=== PATIENT | female | born 1995 | race Caucasian/White ===

== ENCOUNTER 2018-07-09 13:41 | Inpatient (IN) | payer MEDICAID ==
[~2018-07-09] VITALS: Ht 175.3 cm; Wt 105.7 kg
[2018-07-09 14:51] VITALS: Ht 175.3 cm; Wt 105.7 kg
[2018-07-09] MEDS ORDERED: LIDOCAINE 1% (MPF) 30 ML INJ INJ PRN (15:00)
[2018-07-09] MEDS ORDERED: OXYTOCIN 30 UNITS/LR 500 ML IV SCH ×2 (15:00→17:30)
[2018-07-09] MEDS ORDERED: OXYTOCIN 30 UNITS/LR 500 ML IV PRN (15:00)
[2018-07-09] MEDS ORDERED: IBUPROFEN 600 MG TAB PO PRN (15:00)
[2018-07-09] MEDS ORDERED: BUTORPHANOL 2 MG INJ IV PRN ×2 (15:00→17:30)
[2018-07-09] MEDS ORDERED: METHYLERGONOVINE 0.2 MG INJ IM PRN (15:00)
[2018-07-09] MEDS ORDERED: MISOPROSTOL 200 MCG TAB PR PRN (15:00)
[2018-07-09] MEDS ORDERED: CARBOPROST 250 MCG INJ IM PRN (15:00)
[2018-07-09] MEDS: LACTATED RINGER'S 1,000 ML IV SCH ×2 (17:11→21:49)
[2018-07-09] MEDS ORDERED: BUTORPHANOL 1 MG INJ IV PRN (17:30)
[2018-07-09] MEDS ORDERED: ACETAMINOPHEN 325 MG TAB PO PRN (19:00)
[2018-07-10] MEDS: LACTATED RINGER'S 1,000 ML IV SCH ×3 (06:00→19:50)
[2018-07-10] MEDS ORDERED: LIDOCAINE 1% (MPF) 30 ML INJ INJ PRN (08:00)
[2018-07-10] MEDS: MISOPROSTOL 50 MCG CAPSULE PO SCH ×4 (11:10→23:00)
--- NOTE | 2018-07-10 12:07 | HP ---
Date/Time of Note Date/Time of Note DATE: 07/10/18 TIME: 12:03 OB - History Hx of Present Free Text/Dictation at 39+ weeks with continous headache unresolved with Tylenol. Care: Good Care Ultrasounds: Normal mid trimester US Obstetrical Complications: None Medical Complications: None Past Family/Social History * Past Medical, Surgical, Family and Obstetric Histories reviewed from chart. OB Admission Exam Physical Exam HEENT: WNL Heart: Rhythm Normal Lungs: Clear, Equal Abdomen: WNL Extremities: Normal Reflexes: Normal Cervical Dilatation: 1cm Effacement: 50% Station: -1 Membranes: Intact Heart Rate: 130's Accelerations: Accelerations Present Decelerations: No Decelerations Varibility: Moderate Contractions on Admission: 6-10 Minutes Apart Intensity: Moderate Last 72 hours Lab Results CBC & BMP 07/09/18 16:55 Liver Function Test 07/09/18 16:55 Alanine Aminotransferase (ALT/SGPT) 14 Albumin 3.4 Alkaline Phosphatase 172 H Aspartate Amino Transf (AST/SGOT) 25 Direct Bilirubin 0.00 Total Protein 6.8 OB Assessment/Plan Reason for admission: induction of labor (for contious headache.) Plan: Expectant Management, Induction Induction Method: per Pitocin Protocol BRITT FISCHER MD Jul 10, 2018 12:07
--- NOTE | 2018-07-10 19:58 | PREAC ---
Date/Time of Note Date/Time of Note DATE: 07/10/18 TIME: 19:56 Anesthesia Eval and Record Evaluation Time Pre-Procedure Interview DATE: 07/10/18 TIME: 19:56 Age 22 Sex female NPO: 8 hrs Preoperative diagnosis IUP Planned procedure L&D Epidural Past Medical History Past Medical History: Includes Cardio: HTN GI: Obesity Surgery & Anesthesia Issues No known issue Meds Anticoagulation: No Beta Horace within 24 hr: No Reason Beta Horace not given: Pt. not on B-Horace Current Medications Lactated Ringer's 1,000 ml @ 125 mls/hr Q8H IV Last administered on 07/10/18at 19:50; Admin Dose 125 MLS/HR; Start 07/09/18 at 14:42 Lidocaine (Xylocaine 1% (Mpf)) 30 ml ONCE PRN INJ .EPISIOTOMY; Start 07/09/18 at 15:00 Oxytocin/Lactated Ringer's 500 ml @ 500 mls/hr ONCE POST IV ; Start 07/09/18 at 15:00 Oxytocin/Lactated Ringer's 500 ml @ 125 mls/hr POST IV ; Start 07/09/18 at 15:00 Ibuprofen (Motrin) 600 mg ONCE PRN PO .PAIN 1-5; Start 07/09/18 at 15:00 Oxytocin/Lactated Ringer's 500 ml @ 0 mls/hr ONCE PRN IV .VAGINAL BLEEDING; Start 07/09/18 at 15:00 Methylergonovine Maleate (Methergine) 0.2 mg ONCE PRN IM .VAGINAL BLEEDING; Start 07/09/18 at 15:00 Carboprost Tromethamine (Hemabate) 250 mcg ONCE PRN IM .VAGINAL BLEEDING; Start 07/09/18 at 15:00 Misoprostol (Cytotec) 1,000 mcg ONCE PRN MS .VAGINAL BLEEDING; Start 07/09/18 at 15:00 Butorphanol Tartrate (Stadol) 1 mg Q2H PRN IV .PAIN; Start 07/09/18 at 17:30 Butorphanol Tartrate (Stadol) 2 mg Q2H PRN IV .PAIN Last administered on 07/10/18at 17:09; Admin Dose 2 MG; Start 07/09/18 at 17:30 Acetaminophen (Tylenol Tab) 650 mg Q4H PRN PO MILD PAIN(1-3)OR ELEVATED TEMP Last administered on 07/09/18at 18:56; Admin Dose 650 MG; Start 07/09/18 at 19:00 Lidocaine (Xylocaine 1% (Mpf)) 30 ml ONCE PRN INJ DELIVERY; Start 07/10/18 at 08:00 Misoprostol (Cytotec 50 Mcg Capsule) 50 mcg Q4H PO Last administered on 07/10/18at 15:27; Admin Dose 50 MCG; Start 07/10/18 at 11:00; Stop 07/11/18 at 07:01 Meds reviewed: Yes Allergies Coded Allergies: No Known Allergy (Unverified , 07/09/18) Allergies Reviewed: Yes Labs/Studies Labs Reviewed: Reviewed by anesthesiologist Result Diagram: 07/09/18165407/09/181654 test: Positive Studies: ECG Pre-procedure Exam Last vitals BP:112/65, P:78, Spo2:100%, T:98,8 Airway: Adequate mouth opening, Adequate thyromental dist Mallampati: Mallampati II Teeth: Normal Lung: Normal Heart: Normal ASA Physical Status ASA physical status: 2 Emergency: None Planned Anesthetic Neuraxial: Epidural Pre-operative Attestations Prior to commencing anesthesia and surgery, the patient was re-evaluated, there was verification of: *The patient's identity *The results of appropriate recent lab work and preoperative vital signs *The above evaluation not changing prior to induction *Anesthetic plan, risk benefits, alternative and complications discussed with patient/family; questions answered; patient/family understands, accepts and wishes to proceed. RENEA CARVALHO MD Jul 10, 2018 19:58
[2018-07-10] MEDS ORDERED: DIPHENHYDRAMINE 50 MG INJ IV PRN (20:00)
[2018-07-10] MEDS ORDERED: ONDANSETRON 4 MG INJ IV PRN ×2 (20:00→22:00)
[2018-07-10] MEDS ORDERED: NALOXONE (0.4 MG/ML) INJ IV PRN (20:00)
[2018-07-10] MEDS ORDERED: ROPIVACAINE 0.2% 100 ML ONE (20:03)
[2018-07-10] MEDS ORDERED: OXYTOCIN 30 UNITS/LR 500 ML IV SCH (22:00)
[2018-07-10] MEDS ORDERED: ACETAMINOPHEN 1000MG/100ML IV 100 ML IVPB ONE (22:00)
[2018-07-11] MEDS: MISOPROSTOL 50 MCG CAPSULE PO SCH (03:00)
[2018-07-11] MEDS: FENTAnyl 2MCG/ML-ROPIV 0.2% 100 ML BAG EPI SCH ×3 (03:19→14:19)
[2018-07-11] MEDS: LACTATED RINGER'S 1,000 ML IV SCH (03:28)
--- NOTE | 2018-07-11 13:16 | PAC ---
Date/Time of Note Date/Time of Note DATE: 07/11/18 TIME: 13:16 Post-Anesthesia Notes Post-Anesthesia Note Activity: WNL Respiratory function: WNL Cardiovascular function: WNL Mental status: Baseline Pain reasonably controlled: Yes Hydration appropriate: Yes Nausea/Vomiting absent: Yes ADAM RANDOLPH Jul 11, 2018 13:16
[2018-07-11] MEDS ORDERED: LIDOCAINE 1% (MPF) 30 ML INJ ONE (15:10)
--- NOTE | 2018-07-11 17:05 | LDN ---
Date/Time of Note Date/Time of Note DATE: 07/11/18 TIME: 17:05 Delivery Summary Weeks of Gestation 40 Placenta Delivered: Spontaneously Meconium: none Episiotomy: No Perineal laceration: 1 Anesthesia type: Epidural Estimated blood loss: 300 Sponge & Needle done & correct: Yes All needle counts correct: Yes Any foreign bodies felt in the: No BRITT FISCHER MD Jul 11, 2018 17:05
[2018-07-11] MEDS: OXYTOCIN 30 UNITS/LR 500 ML IV SCH ×2 (17:40→17:42)
[2018-07-11 18:35] VITALS: BP 132/81; PULSE 97; RESP 19
[2018-07-11] MEDS ORDERED: OXYTOCIN 30 UNITS/LR 500 ML IV SCH (18:53)
[2018-07-11] MEDS ORDERED: ZOLPIDEM 5 MG TAB PO PRN (19:00)
[2018-07-11] MEDS ORDERED: MISOPROSTOL 200 MCG TAB PR PRN (19:00)
[2018-07-11] MEDS ORDERED: WITCH HAZEL/GLYCERIN PAD PR PRN (19:00)
[2018-07-11] MEDS ORDERED: METHYLERGONOVINE 0.2 MG INJ IM PRN (19:00)
[2018-07-11] MEDS ORDERED: DIPHENHYDRAMINE 25 MG CAP PO PRN (19:00)
[2018-07-11] MEDS ORDERED: SENNA/DOCUSATE NA (8.6MG/50MG) TAB PO PRN (19:00)
[2018-07-11] MEDS ORDERED: MAGNESIUM HYDROXIDE 30ML CUP PO PRN (19:00)
[2018-07-11] MEDS ORDERED: BENZOCAINE 20% 56 ML SPRAY TOP PRN (19:00)
[2018-07-11] MEDS ORDERED: CARBOPROST 250 MCG INJ IM PRN (19:00)
[2018-07-11] MEDS ORDERED: OXYTOCIN 30 UNITS/LR 500 ML IV PRN (19:00)
[2018-07-11 19:30] VITALS: BP 127/72; PULSE 91; RESP 19
[2018-07-11] MEDS: LACTATED RINGER'S 1,000 ML IV* SCH (21:00)
[2018-07-11] MEDS: LANOLIN HPA 1 PKT TOP PRN (21:41)
[2018-07-12] MEDS: IBUPROFEN 800 MG TAB PO SCH ×5 (00:26→23:58)
[2018-07-12 04:15] VITALS: BP 128/73; PULSE 83; RESP 19
[2018-07-12] MEDS: ACETAMINOPHEN 325 MG TAB PO PRN (04:15)
[2018-07-12] MEDS: LACTATED RINGER'S 1,000 ML IV* SCH ×2 (04:46→06:51)
[2018-07-12 07:40] VITALS: BP 117/78; PULSE 79; RESP 18
[2018-07-12] MEDS: HYDROCODONE/APAP (5/325) TAB PO PRN (10:37)
--- NOTE | 2018-07-12 11:12 | QN ---
Documentation Comment doing well vss abd soft d/c home next am BRITT FISCHER MD Jul 12, 2018 11:12
--- NOTE | 2018-07-12 11:13 | DS ---
Date/Time of Note Date/Time of Note DATE: 07/12/18 TIME: 11:12 Discharge Summary Admission/Discharge Info Admit Date/Time Jul 09, 2018 at 13:41 Discharge Date/Time Discharge Diagnosis term preg Patient Condition: Stable Hospital Course unremarkable Primary Care Provider Care Physician No Primary Pending Labs Laboratory Tests Test 07/12/18 07:35 White Blood Count 16.5 10^3/ul (4.8-10.8) Red Blood Count 3.48 10^6/ul (4.20-5.40) Hemoglobin 10.0 g/dl (12.0-16.0) Hematocrit 30.5 % (37.0-47.0) Mean Corpuscular Volume 87.6 fl (72.0-104.0) Mean Corpuscular Hemoglobin 28.7 pg (29.0-33.0) Mean Corpuscular Hemoglobin Concent 32.8 g/dl (32.0-37.0) Red Cell Distribution Width 14.5 % (11.5-14.5) Platelet Count 211 10^3/UL (140-415) Mean Platelet Volume 11.9 fl (7.4-10.4) Immature Granulocytes % 1.000 % (0.001-0.429) Neutrophils % 72.0 % (30.0-74.0) Lymphocytes % 18.1 % (18.0-55.0) Monocytes % 7.5 % (0.0-13.0) Eosinophils % 1.2 % (0.0-7.0) Basophils % 0.2 % (0.0-2.0) Nucleated Red Blood Cells % 0.1 /100WBC (0.0-0.0) Immature Granulocytes # 0.160 10^3/ul (0.0-0.031) Neutrophils # 11.9 10^3/ul (1.6-7.5) Lymphocytes # 3.0 10^3/ul (0.8-2.9) Monocytes # 1.2 10^3/ul (0.3-0.9) Eosinophils # 0.2 10^3/ul (0.0-0.5) Basophils # 0.0 10^3/ul (0.0-0.1) Nucleated Red Blood Cells # 0.0 10^3/ul (0.0-0.0) BRITT FISCHER MD Jul 12, 2018 11:13
[2018-07-12 16:10] VITALS: BP 120/65; PULSE 89; RESP 18
[2018-07-12 19:40] VITALS: BP 128/83; PULSE 80; RESP 19
[2018-07-13] MEDS: ACETAMINOPHEN 325 MG TAB PO PRN ×2 (02:49→16:46)
[2018-07-13 04:00] VITALS: BP 124/78; RESP 20
[2018-07-13] MEDS: IBUPROFEN 800 MG TAB PO SCH ×2 (06:00→11:03)
[2018-07-13] MEDS: HYDROCODONE/APAP (5/325) TAB PO PRN (06:30)
[2018-07-13] MEDS: LANOLIN HPA 1 PKT TOP PRN (06:35)
[2018-07-13 09:00] VITALS: BP 121/79; PULSE 99; RESP 20
[2018-07-13] MEDS ORDERED: DIPHTH/TET/ACEL PERTUSS (ADULT) 0.5 ML VIAL IM* ONE (09:00)
[2018-07-13] MEDS ORDERED: VARICELLA VACCINE LIVE/PF 1,350 UNIT/0.5 ML ML SC* ONE (09:00)
[2018-07-13] MEDS ORDERED: MEASLES,MUMPS,RUBELLA VACCINE INJ SC* ONE (09:00)
[2018-07-13 16:00] VITALS: BP 122/78; PULSE 88; RESP 20
--- NOTE | 2018-07-14 18:10 | DELSUM ---
Delivery Summary A-C Datetime Report Generated by N: 07/14/2018 18:10 DELIVERY PERSONNEL Maintenance Job Titles: Leonora, Arlen MATERNAL INFORMATION Delivery Anesthesia: Epidural Medications in Delivery: LR with 30 units of pitocin Delivery QBL (ml): 384 Placenta Cultured: No Maternal Complications: None Other Maternal Complications: HTN LABOR SUMMARY EDC: 07/14/2018 00:00 No. Babies in Womb: 1 Attempted: No Labor Anesthesia: Epidural LABOR INFORMATION Reason for Induction: Gest. HTN/PreEclam/Eclamp Complete Dilatation: 07/11/2018 15:48 Cervical Ripening Agents: Cytotec @ Oxytocin: Induction Group B Beta Strep: Negative Antibiotics # of Doses: 0 (Annotations: Data stored by [facility] on behalf of user) Steroids Given: None Reason Steroids Not Administered: Not Applicable MEMBRANES Membranes Rupture Method: Spontaneous Rupture of Membranes: 07/11/2018 11:15 Length of Rupture (hr): 5.65 Amniotic Fluid Color: Clear Amniotic Fluid Amount: Small Amniotic Fluid Odor: None STAGES OF LABOR Stage 2 hr: 1 Stage 2 min: 6 Stage 3 hr: 0 Stage 3 min: 13 VAGINAL DELIVERY Laceration Extension: First Degree Laceration Type: Vaginal Laceration Repair: Yes Initial Vag Sponge Count: 10 Final Vag Sponge Count: 10 Initial Vag Sharps Count: 2 Final Vag Sharps Count: 2 Sponge Count Correct: Yes; Vaginal Sweep Performed Sharps Count Correct: Yes BABY A INFORMATION Delivery Date/Time: 07/11/2018 16:54 Method of Delivery: Vaginal Born in Route : No : N/A Forceps: N/A Vacuum Extraction: N/A Shoulder Dystocia : No SHOULDER DYSTOCIA BABY A Delivery Date/Time: 07/11/2018 16:54 PRESENTATION/POSITION BABY A Presentation: Cephalic Cephalic Presentation: Vertex Vertex Position: Left Occipital Anterior Breech Presentation: N/A PLACENTA INFORMATION BABY A Placenta Delivery Time : 07/11/2018 17:07 Placenta Method of Delivery: Spontaneous Placenta Status: Delivered SCORES BABY A Heart Rate 1 min: >100 bpm Resp Effort 1 min: Good Cry Reflex Irritability 1 min: Cough/Sneeze/Pulls Away Muscle Tone 1 min: Some Flexion of Extrem Color 1 min: Body [place], Extremit Blue Resuscitation Effort 1 min: Tactile Stimulation SCORE 1 MIN: 8 Heart Rate 5 min: >100 bpm Resp Effort 5 min: Good Cry Reflex Irritability 5 min: Cough/Sneeze/Pulls Away Muscle Tone 5 min: Active Motion Color 5 min: Body [place], Extremit Blue Resuscitation Effort 5 min: Tactile Stimulation SCORE 5 MIN: 9 INFANT INFORMATION BABY A Gestational Age at Delivery: 39.4 Gestational Status: Full Term- 39- 40.6 Weeks Infant Outcome : Liveborn Infant Condition : Stable Sex: Female IDENTIFICATION/MEDS BABY A ID Band Number: [id number] ID Band Location: Right Leg; Left Arm Sensor Applied: Yes Sensor Number: [id number] Sensor Location : Cord Clamp Vitamin K Given : Not Given Erythromycin Given: Not Given WEIGHT/LENGTH BABY A Infant Birthweight (gm): 3000 Weight (lb): 6 Infant Weight (oz): 10 Length (in): 19.75 Infant Length (cm): 50.17 CORD INFORMATION BABY A No. Cord Vessels: 3 Nuchal Cord : N/A Cord Blood Taken: Yes Suction: Mouth; Nose ASSESSMENT BABY A Infant Complications: None Physical Findings at Delivery: Caput [place]ane[place] Respirations: Appears Normal [employer] Fin[employer]/ALS Called : No Transferred To: Remains with Mother
== END 2018-07-13 18:00 | disposition home or self-care (01) | DRG 807 ==
LOC: L-D 13:41 → PP1 07-11 18:39
PROVIDERS: ADMIT Obstetrics & Gynecology; ATTEND Obstetrics & Gynecology
PROC: 10E0XZZ Delivery of Products of Conception, External Approach (ICD-10-PCS; principal; 2018-07-11)
DX: O26.893 Other specified pregnancy related conditions, third trimester (principal); Z37.0 Single live birth; R51 Headache; O16.4 Unspecified maternal hypertension, complicating childbirth; O99.214 Obesity complicating childbirth; E66.9 Obesity, unspecified; Z3A.39 39 weeks gestation of pregnancy
CPT/HCPCS: 62319; 76815; 80053; 81001; 84560; 85025; 85384; 85610; 85730; 86592; 86850; 86900; 86901; 87340; 90716; J0131; J0595; J2405; J2590; J2795; J3010; J7120

== ENCOUNTER 2018-07-14 11:29 | Emergency (ER) | payer SELFPAY ==
[~2018-07-14] VITALS: Ht 172.7 cm; Wt 100.0 kg
[2018-07-14 11:50] VITALS: Ht 172.7 cm; Wt 100.0 kg
--- NOTE | 2018-07-14 14:47 | PAC ---
Date/Time of Note Date/Time of Note DATE: 07/14/18 TIME: 14:47 Post-Anesthesia Notes Post-Anesthesia Note Last documented vital signs Vital Signs Date Temp Pulse Resp B/P (MAP) Pulse Ox O2 O2 Flow FiO2 Time Delivery Rate 07/14/18 98.3 84 18 156/74 99 room air 14:50 (101) Activity: WNL Respiratory function: WNL Cardiovascular function: WNL Mental status: Baseline Pain reasonably controlled: Yes Hydration appropriate: Yes Nausea/Vomiting absent: Yes JHOANA EVANS MD Jul 14, 2018 14:47
--- NOTE | 2018-07-14 14:47 | PREAC ---
Date/Time of Note Date/Time of Note DATE: 07/14/18 TIME: 14:45 Anesthesia Eval and Record Evaluation Time Pre-Procedure Interview DATE: 07/14/18 TIME: 14:45 Age 22 Sex female NPO: 8 hrs Preoperative diagnosis Post Dural Puncture Headache Planned procedure Epidural Blood Patch Past Medical History Past Medical History: Includes GI: Obesity : : (1), Para: (0) Surgery & Anesthesia Issues No known issue Meds Anticoagulation: No Beta Horace within 24 hr: No Reason Beta Horace not given: Pt. not on B-Horace No Active Prescriptions or Reported Meds Meds reviewed: Yes Allergies Coded Allergies: No Known Allergy (Unverified , 07/14/18) Allergies Reviewed: Yes Labs/Studies Labs Reviewed: Reviewed by anesthesiologist test: N/A (2 day post ) Studies: ECG (n/a), CXR (n/a) Pre-procedure Exam Last vitals Vital Signs Date Temp Pulse Resp B/P (MAP) Pulse Ox O2 O2 Flow FiO2 Time Delivery Rate 07/14/18 98.3 84 18 156/74 99 11:50 (101) Airway: Adequate mouth opening, Adequate thyromental dist Mallampati: Mallampati II Teeth: Normal Lung: Normal Heart: Normal ASA Physical Status ASA physical status: 2 Emergency: None Planned Anesthetic Neuraxial: Epidural (Epidural Blood Patch) Planned Pain Management Parenteral pain med Pre-operative Attestations Prior to commencing anesthesia and surgery, the patient was re-evaluated, there was verification of: *The patient's identity *The results of appropriate recent lab work and preoperative vital signs *The above evaluation not changing prior to induction *Anesthetic plan, risk benefits, alternative and complications discussed with patient/family; questions answered; patient/family understands, accepts and wishes to proceed. JHOANA EVANS MD Jul 14, 2018 14:47
--- NOTE | 2018-07-14 14:52 | ERD ---
ER Documentation Chief Complaint Chief Complaint pt krystle doss with c/o headache, neck pain s/p epidural on Mon HPI 22-year-old female status post vaginal delivery by induction on 07/11 presenting with a headache that started yesterday. Headache is frontal, severe, throbbing. Has associated neck pain and photophobia. Worse when she stands up, better when she sits down or lays down. She has associated nausea but no vomiting. She had an epidural done by anesthesiology before her delivery. No fevers or chills. ROS All systems reviewed and are negative except as per history of present illness. Medications Home Meds No Active Prescriptions or Reported Meds Allergies Allergies: Coded Allergies: No Known Allergy (Unverified , 07/14/18) PMhx/Soc Medical and Surgical Hx: pt denies Medical Hx History of Surgery: No Anesthesia Reaction: No Hx Neurological Disorder: No Hx Respiratory Disorders: No Hx Cardiac Disorders: No Hx Psychiatric Problems: No Hx Miscellaneous Medical Probl: No Hx Substance Use: No Hx Tobacco Use: No Smoking Status: Never smoker FmHx Family History: No diabetes Physical Exam Vitals Vital Signs Date Temp Pulse Resp B/P (MAP) Pulse Ox O2 O2 Flow FiO2 Time Delivery Rate 07/14/18 98.2 68 16 132/92 100 Room Air 16:40 (105) 07/14/18 98.3 84 18 156/74 99 11:50 (101) Physical Exam Const: Appears uncomfortable due to headache, nontoxic Head: Atraumatic Eyes: Normal Conjunctiva, PERRLA, EOMI ENT: Normal External Ears, Nose and Mouth. Neck: Full range of motion. No meningismus. Resp: Clear to auscultation bilaterally Cardio: Regular rate and rhythm, no murmurs Abd: Soft, non tender, non distended. Normal bowel sounds Skin: No petechiae or rashes Back: No midline or flank tenderness Ext: No cyanosis, or edema Neur: Awake and alert, oriented, normal speech, no facial asymmetry, strength and sensations intact in all 4 extremities Psych: Normal Mood and Affect Procedures/MDM Patient is presenting with most likely a post epidural headache. Have a lower suspicion for preeclampsia, eclampsia, acute intracranial hemorrhage. We contacted the anesthesiologist on-call, Dr. Hodges who agreed with diagnosis of post dural puncture headache and agreed to come and do an epidural blood patch. Afterwards, the patient states her symptoms have improved. Patient was observed her for about 2 hours after the procedure with no complications. Return prec autions discussed. Encouraged to return for any worsening symptoms. Departure Diagnosis: Primary Impression: Epidural anesthesia-induced headache during puerperium Condition: Stable CASTILLO VARGAS MD Jul 14, 2018 14:52
--- NOTE | 2018-07-14 14:57 | OPPN ---
Date/Time of Note Date/Time of Note DATE: 07/14/18 TIME: 14:48 Anesthesia Follow up Anesthesia Follow up Last documented vital signs Vital Signs Date Temp Pulse Resp B/P (MAP) Pulse Ox O2 O2 Flow FiO2 Time Delivery Rate 07/14/18 98.3 84 18 156/74 99 11:50 (101) Respiratory function: WNL Cardiovascular function: WNL Comments 22 yr old female, s/p vaginal delivery 2 days ago s/p Epidural analgia, she started having headache afterwards which is getting worse with standing, also associated with photophobia, her headache gets better when sitting or laying down. no diplopia, also associated with nausea sometime, DX of post dural puncture headache was made and Epidural blood patch was recommended, possible risks and benefits were discussed with her and her and both understood and agreed to proceed she was consented. She was placed in sitting position and under sterile preparation 18CC of her own blood drawn and injected in the Epidural place at the same level that the original Epidural catheter was placed in, the epidural space was located using the [place] 16 G after the local lido 1% was used to numb the skin and loss of resistance technique was used to located the epidural space, no paresthesia or bleeding noted, 18CC of her own blood was slowly injected in the epidural space, her headache was improved significantly, patient was placed in supine position and will be observed for 2 hrs and then she can be discharged home. She tolerated the procedure well. Vital signs are stable she is afebrile. She was recommended to hydrate as much as she can and also continue drinking caffeinated drinks and if the headache re-occurred to come back to ER for follow up. JHOANA EVANS MD Jul 14, 2018 14:57
[2018-07-14 16:40] VITALS: BP 132/92; PULSE 68; RESP 16
== END 2018-07-14 16:40 | disposition home or self-care (01) ==
LOC: FTE 11:29 → E/R 16:40
DX: O89.4 Spinal and epidural anesthesia-induced headache during the puerperium (principal); R40.2142 Coma scale, eyes open, spontaneous, at arrival to emergency department; R40.2252 Coma scale, best verbal response, oriented, at arrival to emergency department; R40.2362 Coma scale, best motor response, obeys commands, at arrival to emergency department